=== PATIENT | male | born 1975 | race Caucasian/White ===

== ENCOUNTER 2025-03-11 07:46 | Emergency (ER) | payer OTHER, SELFPAY ==
[2025-03-11 08:00] VITALS: BP 113/72; PULSE 64; RESP 15; TEMP 36.9; O2SAT 97; BMI 25.2
--- NOTE | 2025-03-11 08:07 | ED_ITS ---
HPI - Back Pain/Injury General Chief Complaint: Back Pain/Injury Stated Complaint: Middle back pain , Hurt at work Time Seen by Provider: 03/11/25 07:55 Source: patient History of Present Illness HPI Narrative: This 49 yo male presents with the complaint of mid-back pain after he lifted a 25 lb object at work. Has considerable spasm, can't sit upright. no pain down leg. No change in bowel or bladder function. History of previous ruptured disc. Related Data Previous Rx's ?Medication ?Instructions ?Recorded cyclobenzaprine 10 mg tablet 10 mg PO TID PRN muscle s pasm 5 03/11/25 days #14 tabs dexamethasone 6 mg tablet 6 mg PO DAILY #7 tabs Allergies Allergy/AdvReac Type Severity Reaction Status Date / Time No Known Drug Allergies Allergy Verified 03/11/25 08:01 Review of Systems Review of Systems Narrative: All other systems are negative except for below. Constitutional Constitutional: Reports as per HPI Cardiovascular Cardiovascular: Reports system reviewed and no additional complaints, except as documented Respiratory Respiratory: Reports system reviewed and no additional complaints, except as documented Gastrointestinal Gastrointestinal: Reports system reviewed and no additional complaints, except as documented Musculoskeletal Comments: mid-thoracic paraspinous muscle [place] after lifting heavy object. No pain radiation into legs Neurologic Neurologic: Reports system reviewed and no additional complaints, except as documented Patient History Social History Smoking Status: Current every day smoker Smoking Status: Current every day smoker Exam Initial Vital Signs Initial Vital Signs: Vital Signs Temperature 98.4 F 03/11/25 08:00 Pulse Rate 64 03/11/25 08:00 Respiratory Rate 15 03/11/25 08:00 Blood Pressure 113/72 03/11/25 08:00 Pulse Oximetry 97 03/11/25 08:00 Oxygen Delivery Method Room Air 03/11/25 08:00 Const General: cooperative Other: uncomfortable, difficulty sitting upright, due to pain mid -back Eyes Other: Pale Neck Neck: full ROM Chest Other: Clear to P&A Resp Effort & Inspection: normal respiratory effort Auscultation: clear to auscultation bilaterally Cardio Rhythm: regular rhythm GI Palpation: soft Auscultation: normal bowel sounds Other: No tenderness. Back/Spine/Pelvis Other: Moderate tenderness mid to lower thoracic spine , guarded ROM of thoracolumbar spine , no positive SLR.No foot drop. Extrem Other: No positive SLR. NROM of knees, ankles, feet bilaterally. Slightly guarded ROM of hips bilaterally due to discomfort in back,. Course Course Course Narrative: This patient was felt to have an acute thoracolumbar paraspinous muscle strain . He was given Toradol with some relief and then was given dexamethasone 10 mg IM before discharge with more relief. Sent home with Rx for dexamenhtasone po daily for 7 days and Flexeril tid prn for 5 days. Referred to [facility] for weekly treatment for 4 weeks. Given two days off work. Orders Ordered: Discontinued Medications Dexamethasone (Dexamethasone 10 Mg/Ml Vial) 10 mg IM NOW ONE Stop: 03/11/25 09:31 Last Admin: 03/11/25 09:26 Dose: 10 mg Documented By: Ketorolac Tromethamine (Ketorolac 30 Mg/Ml Vial) 30 mg IM NOW ONE Stop: 03/11/25 08:02 Last Admin: 03/11/25 08:19 Dose: 30 mg Documented By: LISANDRA Vital Signs Vital signs: Vital Signs - 8 hr 03/11/25 08:00 Temperature 98.4 F Pulse Rate 64 Respiratory Rate 15 Blood Pressure 113/72 Pulse Oximetry 97 Oxygen Delivery Method Room Air MDM - Back Pain/Injury Differential Diagnosis Differential diagnosis: Likely lumbar radiculopathy, sciatica, thoracic back pain and discitis Condition is:: Improved Chronic Condition is having:: Moderate exacerbation Condition is at treatment goal?: Yes Medical Records Attestation: I reviewed the patient's medical records. Discharge Plan Departure Patient Disposition: Home Clinical Impression: Strain of lumbar region Instructions: DI for Back Strain or Sprain Prescriptions: New dexamethasone 6 mg tablet 6 mg PO DAILY Qty: 7 0RF Rx Instructions: 1 tab daily for 7 days cyclobenzaprine 10 mg tablet 10 mg PO TID PRN (Reason: muscle spasm) 5 Days Qty: 14 0RF Rx Instructions: 1 tab three times daily for 5 days Referrals: [facility] [Other] - 5-7 days Referral Note: Modalities of choice for thoraco lumbar strain weekly for 2-4 weeks. Clinical Impression: Strain of lumbar region Stand Alone Forms: Patient Portal/API, Work Release Note
[2025-03-11] MEDS: KETOROLAC 30 MG/ML VIAL IM (08:19)
[2025-03-11 09:00] VITALS: BP 145/78; PULSE 68; RESP 19; O2SAT 99
--- NOTE | 2025-03-11 09:05 | PC.NURSE ---
Pt reports spasms to low back. CMS intact to lower extremity.
[2025-03-11] MEDS: DEXAMETHASONE 10 MG/ML VIAL IM (09:26)
[2025-03-11 09:47] VITALS: BP 138/79; PULSE 69; RESP 16; TEMP 36.9; O2SAT 98
== END 2025-03-11 09:48 | disposition home or self-care (01) ==
PROVIDERS: Emergency Provider Emergency Medicine
DX: S39.012A Strain of muscle, fascia and tendon of lower back, initial encounter (principal); X50.0XXA Overexertion from strenuous movement or load, initial encounter
CPT/HCPCS: 96372; 99283; J1100; J1885